=== PATIENT | male | born 1980 | race American Indian/Alaskan Native ===

== ENCOUNTER 2017-10-19 11:17 | Emergency (ER) | payer MEDICAID ==
[2017-10-19 11:42] VITALS: BMI 19.5
[2017-10-19 11:43] VITALS: RESP 18; O2SAT 100
--- NOTE | 2017-10-19 12:01 | ED PDOC ---
Arrival/HPI - General Chief Complaint: Lower Extremity Problem/Injury Time Seen by Provider: 10/19/17 11:29 Historian: Patient - History of Present Illness Narrative History of Present Illness (Text): 10/19/17 11:59 37 year old male, with no significant past medical history, presents to the emergency department with swelling of both legs, since 3 days prior. 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 Patient says he continuously feels his socks are too tight, and they leave a band. Patient denies any fever, chills, headache, dizziness, chest pain, shortness of breath, cough, abdominal pain, nausea, vomiting, diarrhea, back pain, neck pain, urinary/bowel changes, or any other complaint. 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 work) Past Medical History - Provider Review Nursing Documentation Reviewed: Yes - Psychiatric Hx Substance Use: Yes - Anesthesia Hx Anesthesia: No Hx Anesthesia Reactions: No Hx Malignant Hyperthermia: No Family/Social History - Physician Review Nursing Documentation Reviewed: Yes Family/Social History: No Known Family HX Smoking Status: Heavy Smoker > 10 Cigarettes Daily Hx Alcohol Use: Yes Frequency of alcohol use: Socially Hx Substance Use: Yes Substance used: marijuana daily Allergies/Home Meds Allergies/Adverse Reactions: Allergies Penicillins Allergy (Verified 10/19/17 11:50) ANAPHYLAXIS Review of Systems - Physician Review All systems were reviewed & negative as marked: Yes - Review of Systems Constitutional: Normal. absent: Fevers, Night Sweats Eyes: Normal ENT: Normal Respiratory: Normal. absent: SOB, Cough Cardiovascular: Edema (bilateral edema of lower legs). absent: Chest Pain Gastrointestinal: Normal. absent: Abdominal Pain, Diarrhea, Nausea, Vomiting Genitourinary Male: Normal. absent: Urinary Output Changes Musculoskeletal: Normal. absent: Back Pain, Neck Pain Skin: Normal Neurological: Normal. absent: Headache, Dizziness Endocrine: Normal Hemo/Lymphatic: Normal Psychiatric: Normal Physical Exam - Physical Exam Narrative Physical Exam (Text): 10/19/17 12:01 Gen: VS reviewed, alert, well developed, well nourished, nontoxic, mild distress. ENT: normal pharynx. Eye: EOMI, PERRL. Neck: no JVD, supple, no adenopathy. CV: regular rate, regular rhythm, no rubs, no murmur, no gallops, S1, S2, pulses equal and strong. Pulm: no distress, clear to auscultation, no wheeze, no rhonchi, breath sounds equal, no rales. Abd: soft, nontender, no guarding, no rebound, no rigidity, normal bowel sounds. Ext: peripheral edema, bilateral swelling of feet and lower leg that stops at mid-lower leg Skin: good color, no rash, no cyanosis. Psych: responds appropriately to questions, normal affect. Neuro: oriented x 3, CN2-12 intact grossly, motor intact, sensation intact. Vital Signs Reviewed: Yes Vital Signs Temp Pulse Resp BP Pulse Ox 10/19/17 11:42 98.2 F 52 L 18 115/81 100 Temperature: Afebrile Blood Pressure: Normal Pulse: Regular Respiratory Rate: Normal Appearance: Positive for: Well-Appearing, Non-Toxic, Comfortable Pain Distress: None Mental Status: Positive for: Alert and Oriented X 3 Medical Decision Making ED Course and Treatment: 10/19/17 12:04 Impression: 37 year old male presents to the emergency department with bilateral swelling of lower legs Plan: -- Labs -- Chest X-ray -- Reassess and disposition Prior Visits: Notes and results from previous visits were reviewed. Progress Notes: - Lab Interpretations Lab Results: 10/19/17 12:05 10/19/17 12:05 Lab Results 10/19/17 12:05: Sodium 140, Potassium 3.5 L, Chloride 100, Carbon Dioxide 30, Anion Gap 13, BUN 14, Creatinine 0.9, Est GFR ( Amer) > 60, Est GFR (Non- Af Amer) > 60, Random Glucose 80, Calcium 9.2, Total Bilirubin 1.2, AST 31, ALT 21, Alkaline Phosphatase 53, NT-Pro-B Natriuret Pep 44.3, Total Protein 6.7, Albumin 4.1, Globulin 2.6, Albumin/Globulin Ratio 1.5 10/19/17 12:05: WBC 6.0, RBC 3.47 L, Hgb 11.9 L, Hct 35.6 L, MCV 102.6, MCH 34.3 , MCHC 33.4, RDW 12.7, Plt Count 156, MPV 9.3, Gran % 66.3, Lymph % (Auto) 23.0 , [place] % (Auto) 6.8 H, Eos % (Auto) 3.6, Baso % (Auto) 0.3, Gran # 4.00, Lymph # (Auto) 1.4, [place] # (Auto) 0.4, Eos # (Auto) 0.2, Baso # (Auto) 0.02 - RAD Interpretation Narrative RAD Interpretations (Text): 10/19/17 13:45 Chest X-ray reviewed by radiologist, shows: No active disease Radiology Orders: 10/19/17 11:52 CXR [CHEST TWO VIEWS (PA/LAT)] [RAD] Stat Manufacturing Engineer Supervisor: Radiologist - Scribe Statement The provider has reviewed the documentation as recorded by the Scribe Bo Velazquez All medical record entries made by the Scribe were at my direction and personally dictated by me. I have reviewed the chart and agree that the record accurately reflects my personal performance of the history, physical exam, medical decision making, and the department course for this patient. I have also personally directed, reviewed, and agree with the discharge instructions and disposition. Disposition/Present on Arrival - Present on Arrival Any Indicators Present on Arrival: No History of DVT/PE: No History of Uncontrolled Diabetes: No Urinary Catheter: No History of Decub. Ulcer: No History Surgical Site Infection Following: None - Disposition Have Diagnosis and Disposition been Completed?: Yes Diagnosis: Peripheral edema Disposition: HOME/ ROUTINE Disposition Time: 14:48 Patient Plan: Discharge Patient Problems: Current Active Problems Problem Status Onset Peripheral edema Acute Condition: STABLE Discharge Instructions (ExitCare): Dependent Edema (DC) Print Language: POLISH Additional Instructions: Take the water pill in the morning. You may also use compression stockings during the day to help with the swelling. You must follow up with a primary care doctor for further management. Prescriptions: Furosemide [Lasix] 20 mg PO DAILY 30 Days #30 tab Referrals: My Hudson MD [Primary Care Provider] - Follow up with primary Nathaly Sheth MD [Staff Provider] - Follow up with primary [facility] [Outside] - Follow up with primary Forms: [employer] (Czech), WORK NOTE
[2017-10-19 12:59] LABS: BASO # 0.02 K/mm3 (0.0-2.0); BASO % 0.3 % (0.0-3.0); EOS # 0.2 (0.0-0.7); EOS % 3.6 % (1.5-5.0); GRAN % 66.3 % (50.0-68.0); HEMOGLOBIN 11.9 g/dL (14.0-18.0); LYMPH # 1.4 (1.2-3.4); MEAN CELL VOLUME 102.6 fl (80.0-105.0); MEAN CORPUSCULAR HEMOGLOBIN 34.3 pg (25.0-35.0); MEAN CORPUSCULAR HGB CONC 33.4 g/dl (31.0-37.0); MEAN PLATELET VOLUME 9.3 fl (7.0-11.0); MONO # 0.4 (0.1-0.6); MONO % 6.8 % (1.0-6.0); RBC 3.47 10^6/uL (3.5-6.1); RED CELL DISTRIBUTION WIDTH 12.7 % (11.5-14.5)
--- NOTE | 2017-10-19 13:08 | RAD ---
Date of service: 10/19/2017 HISTORY: CHF COMPARISON: No prior. TECHNIQUE: Chest PA and lateral FINDINGS: LUNGS: No active pulmonary disease. PLEURA: No significant pleural effusion identified. No pneumothorax apparent. CARDIOVASCULAR: Normal. OSSEOUS STRUCTURES: No significant abnormalities. VISUALIZED UPPER ABDOMEN: Normal. OTHER FINDINGS: None. IMPRESSION: No active disease.
[2017-10-19 13:09] LABS: ALB/GLOB RATIO 1.5 (1.1-1.8); ALBUMIN 4.1 g/dL (3.0-4.8); ALT/SGPT 21 U/L (7-56); AST/SGOT 31 U/L (17-59); BLOOD UREA NITROGEN 14 mg/dL (7-21); CALCIUM 9.2 mg/dL (8.4-10.5); GFR AFRICAN-AMERICAN > 60; GFR NON-AFRICAN AMERICAN > 60
[2017-10-19 13:17] LABS: B-TYPE NATRIURETIC PEPTIDE 44.3 pg/mL (0-450)
[2017-10-19 16:12] VITALS: BP 114/72; PULSE 60; TEMP 98.3
== END 2017-10-19 15:38 | disposition home or self-care (01) ==
LOC: ED 11:17
DX: R60.0 Localized edema (principal)

== ENCOUNTER 2017-10-24 18:59 | Emergency (ER) | payer MEDICAID ==
[2017-10-24 19:00] VITALS: BMI 19.5
[2017-10-24] MEDS ORDERED: Sodium Chloride 0.9% 1,000 ML IV STA (19:12)
[2017-10-24] MEDS ORDERED: Dextrose 5%/0.9% NS 1,000 ML IV SCH (19:15)
[2017-10-24 19:22] VITALS: RESP 18; TEMP 98.2
--- NOTE | 2017-10-24 19:25 | ED PDOC ---
Arrival/HPI - General Time Seen by Provider: 10/24/17 19:07 Historian: Patient - History of Present Illness Narrative History of Present Illness (Text): 10/24/17 19:09 37 year old male, no significant pmh, allergic to penicillin, complaining of feeling fatigue after starting lasix 20mg/40mg and aldactone. Pt. stated that he has pedal edema, given lasix 20mg po to go home. Pt. went to see the pmd which he received prescription of lasix 40mg and aldactone, edema resolved, stated that he has been feeling fatigue and tired at home, not been eating today , Finger stick in the ER is 93. Pt. stated that he has no fever or chills, no coughing or night sweat, no dizziness, no neck stiffness, no numbness or tingling, no pelvic pain, no other medical or psychological complaints. Past Medical History - Provider Review Nursing Documentation Reviewed: Yes - Psychiatric Hx Substance Use: Yes - Anesthesia Hx Anesthesia: No Hx Anesthesia Reactions: No Hx Malignant Hyperthermia: No Family/Social History - Physician Review Nursing Documentation Reviewed: Yes Family/Social History: Unknown Family HX Smoking Status: Heavy Smoker > 10 Cigarettes Daily Hx Alcohol Use: Yes Hx Substance Use: Yes Substance used: marijuana daily Allergies/Home Meds Allergies/Adverse Reactions: Allergies Penicillins Allergy (Verified 10/19/17 11:50) ANAPHYLAXIS Home Medications: Home Meds Medication Instructions Recorded Confirmed Cyanocobalamin [Vitamin B12 100 1 tab PO DAILY 10/24/17 10/24/17 mcg Tab] Ergocalciferol [Drisdol 50,000 1 cap PO Q7D 10/24/17 10/24/17 Intl Units Cap] Furosemide [Lasix] 1 tab PO DAILY 10/24/17 10/24/17 Furosemide [Lasix] 40 mg PO DAILY 10/24/17 10/24/17 Spironolactone [Aldactone] 1 tab PO DAILY 10/24/17 10/24/17 Review of Systems - Review of Systems Constitutional: Fatigue. absent: Fevers Eyes: absent: Vision Changes ENT: absent: Hearing Changes Respiratory: absent: SOB, Cough Cardiovascular: absent: Chest Pain Gastrointestinal: absent: Abdominal Pain, Nausea, Vomiting Musculoskeletal: absent: Arthralgias, Back Pain Skin: absent: Rash, Pruritis, Skin Lesions Neurological: absent: Headache, Dizziness Psychiatric: absent: Anxiety, Depression, Suicidal Ideation Physical Exam Vital Signs Reviewed: Yes Vital Signs Temp Pulse Resp BP Pulse Ox 10/24/17 19:22 98.2 F 61 18 135/80 99 Temperature: Afebrile Blood Pressure: Normal Pulse: Regular Respiratory Rate: Normal Appearance: Positive for: Well-Appearing, Non-Toxic, Comfortable Pain Distress: None Mental Status: Positive for: Alert and Oriented X 3 Finger Stick Blood Glucose: 93 - Systems Exam Head: Present: Atraumatic, Normocephalic Pupils: Present: PERRL Extroacular Muscles: Present: EOMI Conjunctiva: Present: Normal Mouth: Present: Dry, Normal Tounge, Normal Teeth Nose (External): Present: Atraumatic. No: Abrasion, Contusion Nose (Internal): Present: Normal Inspection, No Active Bleeding. No: Rhinorrhea , Septal Hematoma, Epistaxis Neck: Present: Normal Range of Motion Respiratory/Chest: Present: Clear to Auscultation, Good Air Exchange. No: Respiratory Distress, Accessory Muscle Use Cardiovascular: Present: Regular Rate and Rhythm, Normal S1, S2. No: Murmurs Abdomen: No: Tenderness, Distention, Peritoneal Signs Back: Present: Normal Inspection. No: CVA Tenderness, Midline Tenderness Upper Extremity: Present: Normal Inspection. No: Cyanosis, Edema Lower Extremity: Present: Normal Inspection. No: Edema Neurological: Present: GCS=15, CN II-XII Intact, Speech Normal Skin: Present: Warm, Dry, Normal Color. No: Rashes Psychiatric: Present: Alert, Oriented x 3, Normal Insight, Normal Concentration Medical Decision Making ED Course and Treatment: 10/24/17 19:29 Differential: hypokelamia vs. dehydration -labs -IVF -Observe and reassess 10/24/17 20:06 -BNP reviewed from last visit, within normal limit. -Labs are non-significant, normal potassium, feeling much better after the IVF, juice and food given, tolerated PO, afebrile, request to be discharged after all labs explained to the patient. -Pt. has pedal edema, request stocking, no leg or calf pain, will prescribe stocking for him. -I explained to the patient that the edema is currently resolved, should discontinue the lasix and consult with Dr. Betancur about whether continue it is necessary or not, pt. verbally expressed understanding -Discharge home with stocking, consult with your own pmd see if the lasix or diuretics need to be stopped or possibly medication adjustment, return to the ER for any new or worsening signs or symptoms. - Lab Interpretations Lab Results: 10/24/17 19:12 10/24/17 19:12 Lab Results 10/24/17 19:12: WBC 6.3, RBC 4.21, Hgb 14.6 D, Hct 42.8, MCV 101.7, MCH 34.7, MCHC 34.1, RDW 12.6, Plt Count 192, MPV 9.1, Gran % 67.2, Lymph % (Auto) 22.1, [place] % (Auto) 8.7 H, Eos % (Auto) 1.7, Baso % (Auto) 0.3, Gran # 4.25, Lymph # ( Auto) 1.4, [place] # (Auto) 0.6, Eos # (Auto) 0.1, Baso # (Auto) 0.02 10/24/17 19:12: Sodium 143, Potassium 4.4, Chloride 99, Carbon Dioxide 31, Anion Gap 18, BUN 18, Creatinine 1.2, Est GFR ( Amer) > 60, Est GFR (Non- Af Amer) > 60, Random Glucose 97, Calcium 10.3, Magnesium 2.0, Total Bilirubin 1.2, AST 45, ALT 28, Alkaline Phosphatase 58, Total Protein 8.4 H, Albumin 5.0 H , Globulin 3.5, Albumin/Globulin Ratio 1.4 - Medication Orders Current Medication Orders: Sodium Chloride (Sodium Chloride 0.9%) 1,000 mls @ 999 mls/hr IV .Q1H1M STA Stop: 10/24/17 20:12 Last Admin: 10/24/17 19:26 Dose: 999 mls/hr eMAR Start Stop Document 10/24/17 19:26 GMD (Rec: 10/24/17 19:27 GMD [id number]) Intravenous Solution Start Date 10/24/17 Start Time 19:27 End Date 10/24/17 End time 20:27 Total Infusion Time 60 - PA / LATEX SPOOLER / Resident Statement / has reviewed & agrees with the documentation as recorded. Disposition/Present on Arrival - Present on Arrival Any Indicators Present on Arrival: No History of DVT/PE: No History of Uncontrolled Diabetes: No Urinary Catheter: No History of Decub. Ulcer: No History Surgical Site Infection Following: None - Disposition Have Diagnosis and Disposition been Completed?: Yes Diagnosis: Medication side effect Disposition: HOME/ ROUTINE Disposition Time: 20:09 Patient Plan: Discharge Condition: GOOD Additional Instructions: -Discharge home with stocking, consult with your own pmd see if the lasix or diuretics need to be stopped or possibly medication adjustment, return to the ER for any new or worsening signs or symptoms. Prescriptions: Compression Socks, Medium [Futuro Restoring] 1 each MC DAILY #1 each Referrals: My Hudson MD [Staff Provider] - Follow up with primary Popeye Fraire MD [Staff Provider] - Follow up with primary Forms: WORK NOTE
[2017-10-24 19:38] LABS: BASO # 0.02 K/mm3 (0.0-2.0); BASO % 0.3 % (0.0-3.0); EOS # 0.1 (0.0-0.7); EOS % 1.7 % (1.5-5.0); GRAN # 4.25 (1.4-6.5); GRAN % 67.2 % (50.0-68.0); HEMOGLOBIN 14.6 g/dL (14.0-18.0); LYMPH # 1.4 (1.2-3.4); LYMPH % 22.1 % (22.0-35.0); MEAN CELL VOLUME 101.7 fl (80.0-105.0); MEAN CORPUSCULAR HEMOGLOBIN 34.7 pg (25.0-35.0); MEAN CORPUSCULAR HGB CONC 34.1 g/dl (31.0-37.0); MEAN PLATELET VOLUME 9.1 fl (7.0-11.0); MONO # 0.6 (0.1-0.6); MONO % 8.7 % (1.0-6.0); RBC 4.21 10^6/uL (3.5-6.1); RED CELL DISTRIBUTION WIDTH 12.6 % (11.5-14.5); WHITE BLOOD COUNT 6.3 10^3/ul (4.5-11.0)
[2017-10-24 19:59] LABS: ALB/GLOB RATIO 1.4 (1.1-1.8); ALT/SGPT 28 U/L (7-56); AST/SGOT 45 U/L (17-59); BLOOD UREA NITROGEN 18 mg/dL (7-21); CALCIUM 10.3 mg/dL (8.4-10.5); GFR AFRICAN-AMERICAN > 60; GFR NON-AFRICAN AMERICAN > 60
[2017-10-24 20:29] VITALS: BP 125/76; PULSE 71; O2SAT 100
== END 2017-10-24 20:52 | disposition home or self-care (01) ==
LOC: ED 18:59
DX: R53.83 Other fatigue (principal); T50.1X5A Adverse effect of loop [high-ceiling] diuretics, initial encounter; T50.0X5A Adverse effect of mineralocorticoids and their antagonists, initial encounter; F17.210 Nicotine dependence, cigarettes, uncomplicated
CPT/HCPCS: 80053; 82948; 83735; 85025; 96360; 99285; J7030

== ENCOUNTER 2018-01-12 12:24 | Day surgery (SDC) | payer MEDICAID ==
[2018-01-11 16:19] VITALS: BMI 19.9
[2018-01-12 13:24] LABS: BLOOD UREA NITROGEN 14 mg/dL (7-21); CALCIUM 9.4 mg/dL (8.4-10.5); GFR NON-AFRICAN AMERICAN > 60
[2018-01-12 13:28] LABS: BASO # 0.03 K/mm3 (0.0-2.0); BASO % 0.7 % (0.0-3.0); EOS # 0.2 (0.0-0.7); EOS % 4.6 % (1.5-5.0); GRAN # 2.26 (1.4-6.5); GRAN % 49.5 % (50.0-68.0); HEMOGLOBIN 13.7 g/dL (14.0-18.0); LYMPH # 1.7 (1.2-3.4); LYMPH % 38.2 % (22.0-35.0); MEAN CELL VOLUME 103.8 fl (80.0-105.0); MEAN CORPUSCULAR HEMOGLOBIN 34.9 pg (25.0-35.0); MEAN CORPUSCULAR HGB CONC 33.6 g/dl (31.0-37.0); MEAN PLATELET VOLUME 9.3 fl (7.0-11.0); MONO # 0.3 (0.1-0.6); RBC 3.93 10^6/uL (3.5-6.1); RED CELL DISTRIBUTION WIDTH 12.8 % (11.5-14.5); WHITE BLOOD COUNT 4.6 10^3/uL (4.5-11.0)
[2018-01-12] MEDS ORDERED: Iohexol 240 (50 ml) ONE (14:46)
[2018-01-12] MEDS ORDERED: Gentamicin 80 mg/2mL Inj. ONE (14:47)
[2018-01-12] MEDS ORDERED: Propofol 10 mg/ml Inj (20 ML) ONE (14:52)
[2018-01-12] MEDS ORDERED: Midazolam 2 MG/2 ML VIAL ONE (14:52)
[2018-01-12] MEDS ORDERED: Lactated Ringer's 1,000 ML IV SCH (15:30)
[2018-01-12 16:25] VITALS: PULSE 42; RESP 18; TEMP 97.4; O2SAT 98
[2018-01-12 17:10] VITALS: BP 128/74
--- NOTE | 2018-01-12 17:12 | RAD ---
Date of service: 01/12/2018 PROCEDURE: Fluoroscopy up to 1 hr HISTORY: RETROGRADE PYELOGRAM COMPARISON: TECHNIQUE: 8.9 sec of fluoro time. 3.90 mGy cumulative dose 16 images submitted. FINDINGS: Bilateral pyelograms are unremarkable with no filling defects seen in the renal collecting systems or ureters. IMPRESSION: As above
--- NOTE | 2018-02-15 09:36 | HP ---
UROLOGY ADMISSION HISTORY AND PHYSICAL DATE OF EXAM: 01/12/2018 REASON FOR ADMISSION: For workup of body dysfunction and hematuria. HISTORY OF PRESENT ILLNESS: Mr. Costa is a very pleasant 37-year-old gentleman, who is here for with voiding dysfunction. He has irritative obstructive urinary complaints that he is here now for cystoscopy and evaluation. PAST MEDICAL HISTORY AND SURGICAL HISTORY: As listed on the chart. No history of MO or CVA. SOCIAL HISTORY: Essentially unremarkable. MEDICATION: See the chart. ALLERGIES: See the chart. PHYSICAL EXAM: GENERAL: A well-nourished male, in no apparent distress. VITAL SIGNS: Noted LUNGS: Clear. HEART: S1, S2. ABDOMEN: Soft, nontender, no flank masses appreciated. GENITOURINARY: Normal phallus without discharge. , otherwise unremarkable. DIAGNOSES: 1. Voiding dysfunction. 2. Irritated and obstructive urinary complaints. THE PLAN IS FOLLOWS: We are planning for a cystoscopy and retrograde pyelogram. The plan is as follows: 1. Antibiotic prophylaxis. 2. Cystoscopy. Thank you this note. See the operative note. We noted actually presence of bladder diverticulum, but otherwise no abnormalities are well appreciated. The patient had tolerated that procedure well. See the further notes. Eugene Butcher MD
--- NOTE | 2018-02-15 16:19 | OP ---
PROCEDURE DATE: 01/12/2018 PREOPERATIVE DIAGNOSES: Voiding dysfunction, hematuria, irritative and infectious urinary complaints. POSTOPERATIVE DIAGNOSES: Voiding dysfunction, hematuria, irritative and infectious urinary complaints., bladder diverticulum. PROCEDURE: Cystoscopy, bilateral retrograde pyelogram and cystogram. SURGEON: Eugene Butcher MD. COMPLICATIONS: There were no complications. INDICATIONS: See history and physical for further details. OPERATIVE FINDINGS: 1. Normal anterior urethra. No strictures. Verumontanum is minimally visually occlusive. 2. Bladder mucosa with no lesion. 3. Retrograde pyelogram showed essentially normal upper tract and submitted to the Radiology. 5. There is a bladder diverticulum. 6. Video cystogram and see our pictures. At the termination of the procedure, there were no complication. I do want to mention rectal exam within normal limits. 10-20 g, soft prostate. DESCRIPTION OF PROCEDURE: After obtaining informed consent, the patient was placed on the table. Routine monitors were placed. Timeout was called to confirm patient positioning. We introduced cystoscope via urethra. Anterior urethra was normal. No strictures. The patient was given antibiotics prophylaxis. Timeout was called to confirm patient positioning prior to introducing the cystoscope via urethra. Anterior urethra was normal. No strictures. Verumontanum is minimally visually occlusive. The right ureteral orifice was identified. Bladder diverticulum was noted as well. See below. We did a retrograde pyelogram. Essentially normal upper tract was noted. The cystogram was performed. The bladder was emptied. cystoscope removed. Rectal exam within normal limits. The patient tolerated the procedure well without complication. Eugene Butcher MD
== END 2018-01-12 17:30 | disposition home or self-care (01) ==
LOC: SDS 12:24
PROVIDERS: ATTEND Urology
DX: R31.21 Asymptomatic microscopic hematuria (principal); N32.3 Diverticulum of bladder
CPT/HCPCS: 36415; 52005; 76000; 80048; 85025; J1580; J1885; J2250; J2704; J3010; J7120; Q9966